=== PATIENT | female | born 1930 | race African-American/Black ===

== ENCOUNTER 2018-04-14 07:15 | Day surgery (SDC) | payer MEDICARE, OTHER ==
--- NOTE | 2018-04-09 15:22 | Pre-Procedure Note/Attestation ---
Pre-Procedure Note/Attestation Complete Prior to Procedure Planned Procedure: left Procedure Narrative: phaco with iol Indications for Procedure Pre-Operative Diagnosis: cataract Attestation I attest that I discussed the nature of the procedure; its benefits; risks and complications; and alternatives (and the risks and benefits of such alternatives ), prior to the procedure, with the patient (or the patient's legal employee's representative). I attest that, if there was a reasonable possibility of needing a blood transfusion, the patient (or the patient's legal employee's representative) was given the [facility] standardized written summary, pursuant to the [place] Blood Safety Act ([place] Health and Safety Code # 1645, as amended). I attest that I re-evaluated the patient just prior to the surgery and that there has been no change in the patient's H&P, except as documented below: Artur Franco MD Apr 09, 2018 15:22
--- NOTE | 2018-04-09 15:24 | Opthalmology H&P ---
Ophthalmology H&P H&P Chief Complaint: decreased vision in left eye HPI Vision Affects Ability to: read, focus/use eyes together, manage personal affairs HPI Narrative blurry vision Exam Visual Acuity: od; 20/100 os; CF Tension: od; 24 os;23 Eye Exam: normal OU: external exam, palpebral fissure-width, marginal reflex distance, corneas, anterior chambers; findings: lens - cortical OU, fundus exam - no view ou Assessment/Plan Diagnosis: (1) Nuclear sclerosis of left eye Treatment Plan: cataract extraction w/ lens implant Goals of Treatment: improvement of vision, enhance quality of life Attestation Attestation The risks and benefits of the surgery as well as alternative procedures were explained to the patient in detail. Artur Franco MD Apr 09, 2018 15:24
[~2018-04-14] VITALS: Ht 167.6 cm; Wt 82.6 kg
[2018-04-14] VITALS (9 sets, daily range): BP systolic 144–168; BP diastolic 73–93
[~2018-04-14 07:15] MED LIST: AMLODIPINE BESY10 MG ORAL; ASPIRIN EC81 MG ORAL; Akten 3.5% 1ml Btl LEFT EYE ONE; BENADRYL25 MG PO; CARVEDILOL25 MG ORAL; COLACE100 MG ORAL; COZAAR50 MG ORAL; DOCUSATE SODIU250 MG PO; GABAPENTIN600 MG ORAL; GABAPENTIN600 MG PO; LASIX20 M1 ORAL; NORCO 10-325 T1 EACH PO; PANTOPRAZOLE SO40 MG ORAL; PRAVACHOL40 MG PO; PRAVASTATIN SOD40 M1 ORAL; PREDNISONE20 MG ORAL; PRILOSEC20 MG ORAL; PRILOSEC20 MG PO; Proparacaine 0.5% Opth Soln 15ml LEFT EYE ONE; SPIRONOLACTONE25 MG ORAL; SUCRALFATE1 GM ORAL; TRAMADOL HCL50 MG ORAL; Tetracaine 0.5% Opth 4ml Soln LEFT EYE ONE; VICODIN 5-5001 EACH ORAL; VISTARIL10 MG ORAL; VISTARIL10 MG PO
[2018-04-14] MEDS: Phenylephrine 10% Opth Soln 5ml LEFT EYE SCH ×2 (11:35→12:07)
[2018-04-14] MEDS: Cyclopentolate 1% Opth Sol 2ml LEFT EYE SCH ×2 (11:36→12:07)
[2018-04-14] MEDS: Tropicamide 1% Opth 15ml Soln LEFT EYE SCH ×2 (11:36→12:08)
[2018-04-14] MEDS: Tobramycin Op Soln 0.3% 5ml LEFT EYE SCH ×2 (11:36→12:08)
[2018-04-14] MEDS: Diclofenac Sod 0.1% Op Soln LEFT EYE SCH ×2 (11:38→12:08)
[2018-04-14] MEDS ORDERED: EPINEPHrine 1mg/1ml Amp ONE (12:19)
[2018-04-14] MEDS ORDERED: BSS 15ml BTL ONE (12:19)
[2018-04-14] MEDS ORDERED: Sodium Hyaluronate 14 mg/ml 0.85ml ONE (12:19)
[2018-04-14] MEDS ORDERED: BSS 500ml btl ONE (12:19)
[2018-04-14] MEDS ORDERED: Povidone-Iodine 5% opth solution ONE (12:19)
[2018-04-14] MEDS ORDERED: Midazolam 2mg/2ml Inj ONE (12:29)
[2018-04-14] MEDS ORDERED: Pilocarpine 2% Opth 15ml Soln ONE (12:30)
[2018-04-14] MEDS ORDERED: Pred Forte 1% Opth Susp 1ml ONE (12:30)
[2018-04-14] MEDS ORDERED: Dexamethasone 4mg/ml vial ONE (12:30)
[2018-04-14] MEDS ORDERED: Maxitrol Opth Oint 3.5gm ONE (12:30)
[2018-04-14] MEDS ORDERED: LR 1000ml ONE (12:40)
[2018-04-14] MEDS ORDERED: Propofol 200mg/20ml IV ONE (12:40)
[2018-04-14] MEDS ORDERED: TYLENOL EXTRA500 MG ORAL (12:40)
[2018-04-14] MEDS ORDERED: VITAMIN D250000 UNI1 ORAL (12:41)
[2018-04-14] MEDS ORDERED: FUROSEMIDE20 M1 ORAL (12:41)
[2018-04-14] MEDS ORDERED: GABAPENTIN600 MG ORAL (12:42)
[2018-04-14] MEDS ORDERED: HYDRALAZINE HCL25 M1 ORAL (12:43)
[2018-04-14] MEDS ORDERED: LISINOPRIL10 MG ORAL (12:43)
[2018-04-14] MEDS ORDERED: MOBIC7.5 MG ORAL (12:44)
[2018-04-14] MEDS ORDERED: JANUVIA25 MG ORAL (12:45)
[2018-04-14] MEDS ORDERED: ZANTAC150 MG ORAL (12:45)
[2018-04-14] MEDS ORDERED: LYRICA50 MG ORAL (12:45)
[2018-04-14] MEDS ORDERED: SPIRONOLACTONE25 MG ORAL (12:46)
[2018-04-14] MEDS ORDERED: LR 1000ml 1,000 ML IVLG SCH (13:27)
[2018-04-14] MEDS ORDERED: fentaNYL 100 mcg/2 mL IV PRN (13:30)
--- NOTE | 2018-04-14 13:35 | Anethesia Preoperative Eval ---
Anesthesia Pre-op PMH/ROS General Date of Evaluation: Apr 14, 2018 Time of Evaluation: 12:40 Anesthesiologist: Chiquita ASA Score: ASA 3 Mallampati Score Class I : Soft palate, uvula, fauces, pillars visible Class II: Soft palate, uvula, fauces visible Class III: Soft palate, base of uvula visible Class IV: Only hard plate visible Mallampati Classification: Class III Surgeon: Joan Diagnosis: Cataract left eye Surgical Procedure: Cataract extraction with IOL left eye Family History: no anesthesia problems Allergies: Coded Allergies: PENICILLINS (Verified Allergy, Mild, 08/09/12) DIZZY Medications: see eMAR Patient NPO?: Yes NPO Date: Apr 13, 2018 NPO Time: 20:00 Past Medical History Cardiovascular: Reports: HTN; Denies: CAD, [place], valve dz, arrhythmia, other Pulmonary: Denies: asthma, COPD, STACY, other Gastrointestinal/Genitourinary: Denies: GERD, CRI, ESRD, other Neurologic/Psychiatric: Denies: dementia, CVA, depression/anxiety, TIA, other Endocrine: Denies: DM, hypothyroidism, steroids, other HEENT: Reports: cataract (L); Denies: cataract (R), glaucoma, [place] (L), [place] (R), other Hematology/Immune: Denies: anemia, DVT, bleeding disorder, other Musculoskeletal/Integumentary: Reports: OA; Denies: RA, DJD, DDD, edema, other PMH Narrative: HTN, OA PSxH Narrative: Abdominal surgery for small bowel obstruction, C/S, great toe fracture Anesthesia Pre-op Phys. Exam Physician Exam Last Vital Signs Date Time Temp Pulse Resp B/P (MAP) Pulse Ox O2 Delivery O2 Flow Rate FiO2 04/14/18 12:34 Room Air 04/14/18 12:14 97.7 58 20 157/78 99 Constitutional: NAD Neurologic: CN 2-12 intact Cardiovascular: RRR, no M/R/G Respiratory: CTA Gastrointestinal: S/NT/ND Airway Exam Mallampati Score: Class III MO: full ROM: full Teeth: missing Dentures: upper Anesthesia Pre-op A/P Labs WNL Risk Assessment & Plan Assessment: Class 3 patient for cataract extraction Plan: MAC Status Change Before Surgery: No Pre-Antibiotics Drug: None Thony Porras MD Apr 14, 2018 13:35
--- NOTE | 2018-04-14 13:37 | Immediate Post-Op Evaluation ---
Immediate Post-Op Evalulation Immediate Post-Op Evalulation Procedure: Cataract extraction with IOL left eye Date of Evaluation: Apr 14, 2018 Time of Evaluation: 13:57 IV Fluids: 200 Blood Pressure Systolic: 144 Blood Pressure Diastolic: 73 Pulse Rate: 52 Respiratory Rate: 12 O2 Sat by Pulse Oximetry: 99 Temperature (Fahrenheit): 97.3 Pain Score (1-10): 0 Nausea: No Vomiting: No Complications No complication Patient Status: awake, patent, none Hydration Status: adequate Drug: None Thony Porras MD Apr 14, 2018 13:37
--- NOTE | 2018-04-14 13:52 | 48 Hour Post Anesthesia Eval ---
Post Anesthesia Evaluation Procedure: Cataract extraction with IOL left eye Date of Evaluation: Apr 14, 2018 Time of Evaluation: 14:20 Blood Pressure Systolic: 147 0: 72 Pulse Rate: 52 Respiratory Rate: 14 O2 Sat by Pulse Oximetry: 97 Airway: patent Nausea: No Vomiting: No Pain Intensity: 0 Hydration Status: adequate Cardiopulmonary Status: Stable Mental Status/LOC: patient returned to baseline Follow-up Care/Observations: As per surgery Post-Anesthesia Complications: No anesthetic complication Follow-up care needed: N/A Thony Porras MD Apr 14, 2018 13:52
--- NOTE | 2018-04-15 20:26 | Brief Operative Note ---
Immediate Post Operative Note Operative Note Chief Complaint: blurry vision Pre-op Diagnosis: cataract, OS Procedure: Phaco with IOL Post-op Diagnosis: Pseudophakia Post-op Diagnosis: same as pre-op Findings: consistent w/pre-op dx studies Surgeon: Joan Anesthesiologist: Chiquita Anesthesia: MAC Specimen: none Complications: none Condition: stable Fluids: LR Estimated Blood Loss: none Drains: none Implant(s) used?: Yes Artur Franco MD Apr 15, 2018 20:25
--- NOTE | 2018-04-15 20:29 | Operative Note - PDOC ---
Operative Note Operative Note Date of Operation/Procedure: Apr 14, 2018 Chief Complaint: blurry vision Pre-op Diagnosis: cataract, OS Procedure: Phaco with IOL Post-op Diagnosis: Pseudophakia Post-op Diagnosis: same as pre-op Operative Findings: consistent w/pre-op dx studies Surgeon: Joan Anesthesiologist: Chiquita Anesthesia: MAC Specimen: none Complications: none Condition: stable Fluids: LR Estimated Blood Loss: none Drains: none Implant(s) used?: Yes Indications for Procedure cataract Description of Procedure This patient has been complaining visually significant cataract in the left eye with the best corrected visual acuity under moderate glare conditions worse. The patient complains of difficulties with glare in performing activities of daily living and wants to manage personal affairs with comfort and accuracy and see well enough to move with safety at home and outdoors. ~~~ The risks, benefits and alternatives of the procedure were discussed with the patient in the office prior to scheduling surgery. All questions from the patient were answered after the surgical procedure was explained in detail. The risks of the procedure as explained to the patient include, but are not limited to, pain, infection, bleeding, loss of vision, retinal detachment, need for further surgery, loss of lens nucleus, double vision, etc. Alternative procedures were discussed which include, to do nothing or seek a second opinion. Informed consent for this procedure was obtained from the patient. The patient was referred to a primary care physician for a cardiopulmonary clearance prior to surgery, after proper evaluation was done patient was properly scheduled for outpatient surgery. The patient was brought to the operating room where the anesthesiologist established I.V. lines and cardiac monitoring leads. Mild intravenous sedation was administered. Using a solution containing 0.75% Marcaine and 2% lidocaine with Wydase, a peribulbar block was administered to the eye. ~The patient was then prepared with a 5% solution of povidone-iodine to the conjunctival fornix and lashes, and a 10% solution of povidone-iodine to the lids and periorbital skin. The patient was then draped in the usual sterile fashion. A lid speculum was then placed in the operative eye. A keratome blade was then used to create a biplanar incision into the anterior chamber. Viscoelastics was then instilled into the anterior chamber. A capsulorrhexis was then fashioned with an utrata forceps. BSS and a cannula were then used to hydrodissect and hydro delineate the lens. Paracentesis incision was made at 3 o'clock with sharp blade. The phacoemulsification unit, after being properly adjusted ~and tested, was then used to emulsify the nucleus. Residual cortical material was aspirated with the irrigation and aspiration unit. Healon was then instilled into the anterior chamber. The corneal wound was then enlarged to the size of the optic with the nilton keratome blade. The intraocular lens was then inspected for right ~power and size and thought to be satisfactory. Then the lens was gently placed in the capsular bag. Positioning within the capsular bag was confirmed by direct visualization. Optic centration was accomplished with a Sinskey hook. Viscoelastics ~was removed from the anterior chamber using the irrigation and aspiration unit. The corneal wound was then tested for leaks and none were found. The lid speculum were then removed. Sponge and needle counts were correct. An eye patch and shield were placed over the operative eye. The patient was taken to the recovery room in stable condition. There were no complications. The patient tolerated the procedure well. The patient was then transferred to the ambulatory surgery unit in stable and satisfactory condition , was given detailed written instructions and asked to follow up ~in the office the next day. Artur Franco MD Apr 15, 2018 20:29
== END 2018-04-14 15:00 | disposition home or self-care (01) ==
LOC: SUR 07:15
DX: H25.12 Age-related nuclear cataract, left eye (principal); E11.9 Type 2 diabetes mellitus without complications; K21.9 Gastro-esophageal reflux disease without esophagitis; M19.90 Unspecified osteoarthritis, unspecified site; Z88.0 Allergy status to penicillin
CPT/HCPCS: 66984; 82962; J0171; J1100; J2250; J2704; V2632; 94003; 94150